=== PATIENT | male | born 1960 | race Caucasian/White ===

== ENCOUNTER 2022-07-12 12:55 | Inpatient (IN) | payer BC ==
[~2022-07-12] VITALS: Ht 185.4 cm; Wt 83.9 kg
--- NOTE | 2022-07-12 13:30 | NUR ---
Patient came in to the er c/o "Pain on Right groin monday now worse". On room air, breathing evenly and unlabored. Kept comfortable, will continue to monitor accordingly.
[2022-07-12 14:05] LABS: BASOPHILS # (AUTO) 0.1 K/uL (0.0-0.2); BASOPHILS % (AUTO) 0.6 % (0.0-2.0); HEMATOCRIT 44 % (39-51); HEMOGLOBIN 14.2 g/dL (13.5-17.5); LYMPHOCYTES # (AUTO) 1.1 K/uL (0.8-4.8); LYMPHOCYTES % (AUTO) 9.4 % (20.0-44.0); MEAN CORPUSCULAR HGB CONC 33 g/dl (31.0-36.0); MEAN CORPUSCULAR VOLUME 88 fL (80-96); MONOCYTES # (AUTO) 0.7 K/uL (0.1-1.30); MONOCYTES % (AUTO) 6.4 % (2.0-12.0); NEUTROPHILS # (AUTO) 9.4 K/uL (1.8-8.9); NEUTROPHILS % (AUTO) 83.6 % (43.0-81.0); PLATELET COUNT (AUTO) 236 K/uL (150-450); RED BLOOD CELL COUNT(AUTO) 4.94 MIL/uL (4.5-6.0); WHITE BLOOD COUNT (AUTO) 11.2 K/uL (4.3-11.0)
[2022-07-12 14:18] LABS: ALBUMIN 3.9 g/dL (3.4-5.0); BILIRUBIN,DIRECT 0.1 mg/dL (0.0-0.2); BILIRUBIN,TOTAL 0.7 mg/dL (0.2-1.0); CALCIUM, SERUM 8.6 mg/dL (8.5-10.1); CREATININE 0.9 mg/dL (0.6-1.3); TOTAL PROTEIN, SERUM 7.4 g/dL (6.4-8.2)
[2022-07-12] MEDS ORDERED: CT SWABBABLE VALVE TRANS SET 1 EA INFUS.SET MC ONE (14:52)
[2022-07-12] MEDS ORDERED: IV NS 0.9% 250 ML IV ONE (14:52)
[2022-07-12] MEDS ORDERED: IOHEXOL-350 100 ML VIAL IV ONE (14:52)
--- NOTE | 2022-07-12 14:55 | NUR ---
DOMINICK [phone] BROTHER.
[2022-07-12] MEDS ORDERED: ONDANSETRON HCL/PF 4 MG/2 ML VIAL ONE (14:58)
[2022-07-12] MEDS ORDERED: MORPHINE SULFATE INJ 4 MG/ML DISP.SYRIN ONE (14:58)
[2022-07-12] MEDS ORDERED: ONDANSETRON HCL/PF 4 MG/2 ML VIAL IVP ONE (15:00)
[2022-07-12] MEDS ORDERED: IV NS 0.9% 1,000 ML BAG IV ONE (15:00)
[2022-07-12] MEDS ORDERED: MORPHINE SULFATE INJ 2 MG/ML DISP.SYRIN IV ONE (15:00)
--- NOTE | 2022-07-12 15:26 | NUR ---
MOVE SHEET SUBMITTED.
[2022-07-12] MEDS ORDERED: PHYTONADIONE INJ 10 MG in IV D5W 50 ML SQ ONE (16:00)
[2022-07-12] MEDS ORDERED: PHYTONADIONE INJ 10 MG in IV D5W 50 ML IV ONE (16:05)
--- NOTE | 2022-07-12 16:52 | NUR ---
CLINICALS FAXED TO [facility] TRANSFER CENTER KISHA
[2022-07-12] MEDS ORDERED: PROTHROMBIN COMPLEX CONCENTR 500 UNIT VIAL IV ONE (17:00)
--- NOTE | 2022-07-12 17:06 | NUR ---
FAXED CLINICALS TO [facility] FOR [facility] MURO
--- NOTE | 2022-07-12 17:24 | NUR ---
CALLED [facility] [phone] AT [facility]
--- NOTE | 2022-07-12 17:31 | NUR ---
CALLED [facility] MIGUE ZAMORA [phone] AND FAXED CLINICALS.
--- NOTE | 2022-07-12 17:34 | NUR ---
[facility] [phone] ATTN LIOR NO LARKSPUR NO TO ENOC SHEPHEDR. ELLABELL AT [facility].
--- NOTE | 2022-07-12 17:50 | NUR ---
CALLED [facility] [phone]
[2022-07-12 17:57] LABS: BASOPHILS % (AUTO) 0.3 % (0.0-2.0); EOSINOPHILS % (AUTO) 0.1 % (0.0-6.0); HEMATOCRIT 38 % (39-51); HEMOGLOBIN 12.4 g/dL (13.5-17.5); LYMPHOCYTES % (AUTO) 9.7 % (20.0-44.0); MEAN CORPUSCULAR HGB CONC 33 g/dl (31.0-36.0); MEAN CORPUSCULAR VOLUME 88 fL (80-96); MONOCYTES # (AUTO) 0.6 K/uL (0.1-1.30); MONOCYTES % (AUTO) 5.2 % (2.0-12.0); NEUTROPHILS # (AUTO) 9.2 K/uL (1.8-8.9); NEUTROPHILS % (AUTO) 84.7 % (43.0-81.0); PLATELET COUNT (AUTO) 204 K/uL (150-450); WHITE BLOOD COUNT (AUTO) 10.9 K/uL (4.3-11.0)
--- NOTE | 2022-07-12 18:19 | NUR ---
ED CALLED. I WAS ADVICED THEY WERE AT [facility].
--- NOTE | 2022-07-12 18:19 | NUR ---
[facility] FAXED CLINICALS [phone] TEL [phone]
--- NOTE | 2022-07-12 18:20 | NUR ---
CALLED [facility] [phone] MIGUE VERA
--- NOTE | 2022-07-12 18:27 | NUR ---
CALLED DR. BISHOP [phone] [facility]
[2022-07-12 18:28] LABS: BILIRUBIN,URINE NEGATIVE (NEGATIVE); COLOR,URINE YELLOW (YELLOW); LEUKOCYTE ESTERASE ,URINE NEGATIVE (NEGATIVE); NITRITE, URINE NEGATIVE (NEGATIVE); PROTEIN,URINE NEGATIVE (NEGATIVE); UGLUCOSE NEGATIVE (NEGATIVE); UROBILINOGEN,URINE 0.2 EU/dL (0.2)
--- NOTE | 2022-07-12 18:38 | NUR ---
[facility] [phone] SUNSHINE.
[2022-07-12 18:49] LABS: BACTERIA,URINE Rare /HPF (None Seen); SQUAMOUS EPITHELIAL CELL,UR Rare /HPF (None Seen)
--- NOTE | 2022-07-12 18:53 | NUR ---
DR. GARSIA SPEAKING WITH DR. SUNSHINE.
--- NOTE | 2022-07-12 18:57 | NUR ---
[facility] [phone] NEEDS AUTH. FOR ADMISSION.
--- NOTE | 2022-07-12 19:16 | NUR ---
DON FROM [place] CALLED CASE BEING DECLINED DUE TO NO AVAIALBLE BEDS.
--- NOTE | 2022-07-12 20:03 | NUR ---
RECEIVED PT IN ROOM 4. PT IS ALERT AND ORIENTED, RESTING COMFORTABLY IN BED. MOTHER IS AT BEDSIDE. PT DENIES ANY PAIN AT THIS TIME. CONNECTED TO MONITOR. RR IS EVEN AND NON LABORED. VSS. WILL CONTINUE TO MONITOR.
--- NOTE | 2022-07-12 21:55 | NUR ---
CANDELARIO CHRISTINA AT [facility], UNABLE TO ACCEPT AT THIS TIME
--- NOTE | 2022-07-12 21:57 | NUR ---
SPOKE WITH SURESH- PREFERRED IPA. AUTH# FOR TRANSFER [id number]
--- NOTE | 2022-07-12 23:00 | NUR ---
INITIATED PLASMA TRANSFUSION VIA IV PUMP LAC18G TYPE: A POS UNIT# [id number]
--- NOTE | 2022-07-12 23:37 | NUR ---
PT TOLERATING PLASMA TRANSFUSION WELL, NO ADVERSE REACTION NOTED, VSS. WILL CONTINUE TO MONITOR.
[2022-07-13] VITALS (8 sets, daily range): BP systolic 98–116; BP diastolic 63–72
--- NOTE | 2022-07-13 00:09 | NUR ---
[facility] CALLED FOR HIGHER LEVEL OF CARE. FACESHEET AND CLINICALS FAXED.
[2022-07-13 00:21] LABS: BASOPHILS # (AUTO) 0.1 K/uL (0.0-0.2); BASOPHILS % (AUTO) 0.5 % (0.0-2.0); EOSINOPHILS % (AUTO) 0.3 % (0.0-6.0); HEMATOCRIT 37 % (39-51); HEMOGLOBIN 12.2 g/dL (13.5-17.5); LYMPHOCYTES # (AUTO) 1.6 K/uL (0.8-4.8); LYMPHOCYTES % (AUTO) 14.8 % (20.0-44.0); MEAN CORPUSCULAR HGB CONC 33 g/dl (31.0-36.0); MEAN CORPUSCULAR VOLUME 88 fL (80-96); MONOCYTES # (AUTO) 1.2 K/uL (0.1-1.30); MONOCYTES % (AUTO) 11.4 % (2.0-12.0); NEUTROPHILS # (AUTO) 7.9 K/uL (1.8-8.9); PLATELET COUNT (AUTO) 204 K/uL (150-450); WHITE BLOOD COUNT (AUTO) 10.9 K/uL (4.3-11.0)
[2022-07-13] MEDS ORDERED: IOHEXOL-350 100 ML VIAL IV ONE (02:30)
[2022-07-13] MEDS ORDERED: IV NS 0.9% 250 ML IV ONE (02:30)
--- NOTE | 2022-07-13 07:30 | NUR ---
CALLED NURSING SUP FOR ICU BED.
--- NOTE | 2022-07-13 07:36 | NUR ---
[facility] CALLED NONDESTRUCTIVE TESTER PAGED.
[2022-07-13] MEDS ORDERED: WARF3TAB59 PO (07:52)
[2022-07-13] MEDS ORDERED: ASPI-1169 PO (07:52)
--- NOTE | 2022-07-13 08:57 | NUR ---
DARIEN FROM [facility] [phone] IF THE PT STILL NEEDS A BED AT [facility].
--- NOTE | 2022-07-13 09:12 | NUR ---
SISTER AUGUSTUS CALLED, LEFT CONTACT # [phone]
[2022-07-13] MEDS ORDERED: MAGNESIUM HYDROXIDE 30 ML UDC PO PRN (10:00)
[2022-07-13] MEDS ORDERED: HYDROCODONE/APAP 5/325MG TABLET PO PRN (10:00)
[2022-07-13] MEDS ORDERED: MAG HYDROX/AL HYDROX/SIMETH 30 ML UDC PO PRN (10:00)
[2022-07-13] MEDS ORDERED: ACETAMINOPHEN 325 MG TABLET PO PRN (10:00)
[2022-07-13] MEDS ORDERED: ONDANSETRON HCL/PF 4 MG/2 ML VIAL IVP PRN (10:00)
[2022-07-13 10:34] LABS: BASOPHILS # (AUTO) 0.1 K/uL (0.0-0.2); BASOPHILS % (AUTO) 0.8 % (0.0-2.0); EOSINOPHILS % (AUTO) 1.3 % (0.0-6.0); HEMATOCRIT 38 % (39-51); HEMOGLOBIN 12.6 g/dL (13.5-17.5); LYMPHOCYTES # (AUTO) 1.2 K/uL (0.8-4.8); LYMPHOCYTES % (AUTO) 16.6 % (20.0-44.0); MEAN CORPUSCULAR HGB CONC 33 g/dl (31.0-36.0); MEAN CORPUSCULAR VOLUME 88 fL (80-96); MONOCYTES # (AUTO) 0.8 K/uL (0.1-1.30); MONOCYTES % (AUTO) 10.6 % (2.0-12.0); NEUTROPHILS # (AUTO) 5.2 K/uL (1.8-8.9); NEUTROPHILS % (AUTO) 70.7 % (43.0-81.0); PLATELET COUNT (AUTO) 199 K/uL (150-450); RED BLOOD CELL COUNT(AUTO) 4.29 MIL/uL (4.5-6.0); WHITE BLOOD COUNT (AUTO) 7.4 K/uL (4.3-11.0)
--- NOTE | 2022-07-13 13:38 | NUR ---
GOING TO ICU 254
--- NOTE | 2022-07-13 14:06 | NUR ---
REPORT GIVEN TO OLIVIA MAKI AT ICU. PT AWAITING TRANSFER TO FLOOR.
[2022-07-13] MEDS: IV NS 0.9% 1,000 ML IV PRN (14:32)
--- NOTE | 2022-07-13 14:37 | NUR ---
PT TRANSFERRED TO 254 VIA [facility] ACLS PROTOCOL. WARM HANDOFF GIVEN TO GLYNN BAKER.
--- NOTE | 2022-07-13 14:45 | NUR ---
ICU/RN PT RECEIVED IN BED, AWAKE, A&OX4. REPORT RECEIVED FROM TRAMAINE FLYNN. LEFT AC 18G AND RIGHT AC 18G IN PLACE, IVF NS STARTED AT 75CC/HR ORDERED. PT DOES NOT REPORT PAIN OR DISCOMFORT AT THIS TIME. PT STABLE ON RA SAT 98% ON BEDSIDE MONITOR.
--- NOTE | 2022-07-13 19:30 | NUR ---
RN OPENING NOTES RECEIVED CARE OF PATIENT FROM AM NURSE, PATIENT SLEEPING, WAKES UP TO NAME. PATIENT IS A/O X4, ABLE TO MAKE NEEDS KNOWN. PATIENT IN NO DISCOMFORT OR PAIN AT THIS TIME. PATIENT BREATHING ON ROOM AIR, NO SOB NOTED, O2 SAT 94%. PATIENT'S TELE MONITOR READS NSR WITH BBB, HR 81, NO DISTRESS NOTED ON PATIENT. LEFT AC 18G AND RIGHT AC 18G IN PLACE, RUNNING WITH IVF NS AT 75 ML/HR. SAFETY MEASURES IMPLEMENTED. WILL CONTINUE TO MONITOR PATIENT.
[2022-07-14] VITALS (22 sets, daily range): BP systolic 88–116; BP diastolic 61–80
[2022-07-14] MEDS: IV NS 0.9% 1,000 ML IV PRN (04:00)
[2022-07-14 05:01] LABS: BASOPHILS % (AUTO) 0.6 % (0.0-2.0); EOSINOPHILS % (AUTO) 2.4 % (0.0-6.0); HEMATOCRIT 35 % (39-51); HEMOGLOBIN 11.6 g/dL (13.5-17.5); LYMPHOCYTES # (AUTO) 1.4 K/uL (0.8-4.8); LYMPHOCYTES % (AUTO) 23.7 % (20.0-44.0); MEAN CORPUSCULAR HGB CONC 33 g/dl (31.0-36.0); MEAN CORPUSCULAR VOLUME 89 fL (80-96); MONOCYTES # (AUTO) 0.7 K/uL (0.1-1.30); MONOCYTES % (AUTO) 12.5 % (2.0-12.0); NEUTROPHILS # (AUTO) 3.5 K/uL (1.8-8.9); NEUTROPHILS % (AUTO) 60.8 % (43.0-81.0); PLATELET COUNT (AUTO) 176 K/uL (150-450); RED BLOOD CELL COUNT(AUTO) 3.93 MIL/uL (4.5-6.0); WHITE BLOOD COUNT (AUTO) 5.8 K/uL (4.3-11.0)
[2022-07-14 05:50] LABS: CALCIUM, SERUM 7.7 mg/dL (8.5-10.1); CREATININE 0.8 mg/dL (0.6-1.3); PHOSPHORUS 2.5 mg/dL (2.5-4.9); POTASSIUM 3.7 mmol/L (3.5-5.1)
--- NOTE | 2022-07-14 07:20 | NUR ---
RN NOTES ENDORSED CARE OF PATIENT TO AM NURSE, PATIENT REMAINS A/O X4, NO PAIN OF DISCOMFORT EXPRESSED. ON ROOM AIR, TOLERATING WELL, NO SOB NOTED. NO SIGNIFICANT FINDINGS UPON ALL NURSING ASSESSMENTS. PLAN OF CARE EXECUTED. SAFETY MEASURES KEPT IN PLACE. ENDORSED CARE OF PATIENT TO AM NURSE FOR ANTHONY.
[2022-07-14] MEDS ORDERED: ENOXAPARIN SODIUM 80 MG/0.8 ML DISP.SYRIN SQ SCH (09:00)
--- NOTE | 2022-07-14 19:10 | NUR ---
RN NOTES RECEIVED REPORT FROM MORNING RN. PATIENT IN BED A/O X4. ON ROOM AIR SATING 99% NO SOB NO DISTRESS NOTED AT THIS TIME. WITH IV ACCESS AT L AC # 18 PATENT FLUSHES WELL. WITH R AC # 18 PATENT SALINE LOCK. ALL SAFETY MEASURES IN PLACE AT ALL TIMES. HOB ELEVATED. CALL LIGHT WITHIN REACH. BED ON LOWEST POSITION AND LOCKED. NO S/SX OF BLEEDING AT THIS TIME. WILL CLOSELY MONITOR THE PATIENT
--- NOTE | 2022-07-14 20:05 | NUR ---
RN NOTES RECEIVED CALL FROM DR VASQUEZ TO DIONY PHILLIPS.
[2022-07-15] VITALS (18 sets, daily range): BP systolic 100–143; BP diastolic 65–88
[2022-07-15 04:16] LABS: BASOPHILS % (AUTO) 0.6 % (0.0-2.0); EOSINOPHILS % (AUTO) 2.5 % (0.0-6.0); HEMATOCRIT 34 % (39-51); HEMOGLOBIN 11.3 g/dL (13.5-17.5); LYMPHOCYTES # (AUTO) 1.4 K/uL (0.8-4.8); LYMPHOCYTES % (AUTO) 25.2 % (20.0-44.0); MEAN CORPUSCULAR HGB CONC 33 g/dl (31.0-36.0); MEAN CORPUSCULAR VOLUME 88 fL (80-96); MONOCYTES # (AUTO) 0.7 K/uL (0.1-1.30); MONOCYTES % (AUTO) 12.3 % (2.0-12.0); NEUTROPHILS # (AUTO) 3.2 K/uL (1.8-8.9); NEUTROPHILS % (AUTO) 59.4 % (43.0-81.0); PLATELET COUNT (AUTO) 183 K/uL (150-450); RED BLOOD CELL COUNT(AUTO) 3.86 MIL/uL (4.5-6.0); WHITE BLOOD COUNT (AUTO) 5.4 K/uL (4.3-11.0)
[2022-07-15 04:55] LABS: BILIRUBIN,TOTAL 0.7 mg/dL (0.2-1.0); CALCIUM, SERUM 8.1 mg/dL (8.5-10.1); CREATININE 0.8 mg/dL (0.6-1.3); PHOSPHORUS 2.9 mg/dL (2.5-4.9); POTASSIUM 3.7 mmol/L (3.5-5.1)
--- NOTE | 2022-07-15 07:05 | NUR ---
RN NOTES PATIENT REMAINS STABLE NO SIGNIFICANT CHANGES IN HEALTH CONDITION. PATIENT ON ROOM AIR SATING 99% NO SOB NO DISTRESS NO PAIN NOTED AT THIS TIME. ALL SAFETY MEASURES IN PLACE AT ALL TIMES. HOB ELEVATED. CALL LIGHT WITHIN REACH. WILL ENDORSED TO MORNING SHIFT FOR ANTHONY
--- NOTE | 2022-07-15 07:15 | NUR ---
WAREHOUSE DELIVERY MANAGER OPENING NOTE: RECEIVED PT. IN BED, AWAKE, A/OX4, ABLE TO MAKE NEEDS KNOWN. NO COMPLAINTS OF PAIN/DISCOMFORT AT THIS TIME. INTERIOR PLANT CARETAKER READS NSR WITH HR OF 64 BPM. ON RA, NO S/S OF RESPIRATORY DISTRESS. PT. IS CONTINENT AND USING URINAL IN BED, U/O CLEAR YELLOW. PT. CAN MOVE INDEPENDENTLY IN BED. SKIN INTACT. IV ACCESS ON L AC #18G AND R AC #18G, BOTH SALINE LOCKED. DRESSING C/D/I. IV SITES HAVE NO S/S OF INFILTRATION. SAFETY MEASURES IN PLACE: BED IN LOWEST & LOCKED POSITION, BED ALARM ON, CALL LIGHT WITHIN REACH, HOB ELEVATED AT 30 DEGREES, SIDE RAILS UP X2. WILL CONTINUE TO MONITOR PT. FOR ANY CHANGES.
[2022-07-15] MEDS: HEPARIN INFUSION/D5W 500 ML IV PRN (09:48)
[2022-07-15] MEDS: ASPIRIN 81 MG TAB.CHEW PO SCH (10:12)
--- NOTE | 2022-07-15 15:10 | NUR ---
ms rn received a new transfer from icu,61 year ol male, awake,alert,oriented x4,not in any form of distress, respirations even and unlabored,no sob noted, lungs are clear,abdomen soft,positive bowel sounds, denies pain at this time,nsr on monitor. patient in heparin drip infusing at right ac g,18,will have a repaet aptt draw at 1600, will monitor patient. Addendum: 07/15/22 at 1540 by TIARRA CORDOVA RN notes should be timed 1525,not 1510
--- NOTE | 2022-07-15 15:20 | NUR ---
MEDICAL INSURANCE VERIFIERFAMILY READINESS SUPPORT ASSISTANT NOTE: TRANSFERRED PT. TO TELEMETRY UNIT IN ROOM 312-1 VIA RNEY AT 1515. REPORT GIVEN TO PRODUCTION DIRECTORASIF. PT. REMAINS TO BE AWAKE, A/OX4, ABLE TO MAKE NEEDS KNOWN. NO COMPLAINTS OF PAIN/DISCOMFORT AT THE TIME OF TRANSFER. BUSINESS EMPLOYMENT SPECIALIST READS NSR WITH HR OF 71 BPM. ON RA, NO S/S OF RESPIRATORY DISTRESS. PT. IS CONTINENT & CAN MOVE INDEPENDENTLY IN BED. SKIN INTACT. IV ACCESS ON L AC #18G SALINE LOCKED AND R AC #18G, WITH HEPARIN DRIP RUNNING AT 1550 UNITS/HR. DRESSING C/D/I. BOTH IV SITES HAVE NO S/S OF INFILTRATION. NO S/S OF BLEEDING NOTED. CONTINUITY OF CARE, PT. BELONGINGS AND MEDICATIONS HANDED OFF AND ENDORSED TO GLYNN GOLD AND GLYNN MAYEN AT BEDSIDE.
[2022-07-15] MEDS ORDERED: WARFARIN SODIUM 2 MG TABLET PO SCH (17:00)
[2022-07-15] MEDS ORDERED: HEPARIN SODIUM, PORCINE 5000 UNITS/1 ML VIAL IV ONE (17:30)
--- NOTE | 2022-07-15 18:47 | NUR ---
COMMUNITY RELATIONS DIRECTOR CLOSING NOTE: PT IS AWAKE, A/OX4, ABLE TO MAKE NEEDS KNOWN. NO COMPLAINTS OF PAIN/DISCOMFORT AT THE TIME . METAL PRECISION MACHINE ASSEMBLER READS NSR WITH HR OF 76 BPM. ON RA, NO S/S OF RESPIRATORY DISTRESS NOTED. PT IS CONTINENT; ABLE MOVE INDEPENDENTLY IN BED. SKIN INTACT. IV ACCESS ON L AC #18G SALINE LOCKED AND R AC #18G, WITH HEPARIN DRIP RUNNING AT 1700 UNITS/HR. NO S/S OF INFILTRATION TO IV SITES. NO S/S OF BLEEDING SEEN.
--- NOTE | 2022-07-15 19:10 | NUR ---
TELE/RN OPENING NOTE RECEIVED PATIENT RESTING IN BED. FAMILY AT BEDSIDE. PATIENT IS ALERT AND ORIENTED X 4. ABLE TO MAKE NEEDS KNOWN. DENIES PAIN AT THIS TIME. CONTINUES ON ROOM AIR WITH NO S/SX OF RESPIRATORY DISTRESS NOTED. IV ACCESS TO RIGHT AC #18G AND LEFT AC #18G BOTH INTACT AND PATENT. CONTINUES ON HEPARIN DRIP AT 1700 UNITS/HR. NEXT PTT IS AT 2200. NO S/SX OF ACTIVE BLEEDING NOTED. CONTINUES ON TELE MONITOR WITH CURRENT READING SR WITH BBB. CALL LIGHT WITHIN REACH. ASPIRATION, FALL AND SAFETY PRECAUTIONS MAINTAINED. ALL NEEDS ATTENDED TO AT THIS TIME.
--- NOTE | 2022-07-15 22:00 | NUR ---
TELE/RN NOTE RECEIVED CALL FROM LAB WITH CRITICAL LAB VALUE PTT > 170. PER HEPARIN PROTOCOL NOTIFIED UNIT MANAGER CONVENIENCE STORES MD VELASQUEZ. ORDER TO HOLD HEPARIN DRIP X 1 HOUR AND THEN DECREASE RATE BY 3 UNITS/KG/HR. NEW RATE WILL BE 1450 UNITS/HR TO BE RESTARTED AT 2300.
[2022-07-16] VITALS: BP 124/78
[2022-07-16] MEDS: HEPARIN INFUSION/D5W 500 ML IV PRN ×2 (03:00→22:11)
[2022-07-16 04:00] VITALS: BP 97/68
--- NOTE | 2022-07-16 06:10 | NUR ---
TELE/RN NOTE PATIENT CURRENTLY RESTING IN BED. AWAKE, ALERT AND ORIENTED X 4. ABLE TO MAKE NEEDS KNOWN. DENIES PAIN AT THIS TIME. CONTINUES ON ROOM AIR WITH NO S/SX OF RESPIRATORY DISTRESS NOTED. IV ACCESS TO RIGHT AC #18G AND LEFT AC #18G BOTH INTACT AND PATENT. CONTINUES ON HEPARIN DRIP AT 1450 UNITS/HR. AWAITING PTT RESULT FROM LAB. NO S/SX OF ACTIVE BLEEDING NOTED. CONTINUES ON TELE MONITOR WITH CURRENT READING SR WITH BBB. CALL LIGHT WITHIN REACH. ASPIRATION, FALL AND SAFETY PRECAUTIONS MAINTAINED. WILL ENDORSE PLAN OF CARE TO ONCOMING SHIFT RN.
[2022-07-16 06:47] LABS: BASOPHILS % (AUTO) 0.5 % (0.0-2.0); EOSINOPHILS % (AUTO) 2.9 % (0.0-6.0); HEMATOCRIT 35 % (39-51); HEMOGLOBIN 11.6 g/dL (13.5-17.5); LYMPHOCYTES # (AUTO) 1.2 K/uL (0.8-4.8); LYMPHOCYTES % (AUTO) 20.1 % (20.0-44.0); MEAN CORPUSCULAR HGB CONC 34 g/dl (31.0-36.0); MEAN CORPUSCULAR VOLUME 89 fL (80-96); MONOCYTES # (AUTO) 0.6 K/uL (0.1-1.30); MONOCYTES % (AUTO) 10.8 % (2.0-12.0); NEUTROPHILS # (AUTO) 3.9 K/uL (1.8-8.9); NEUTROPHILS % (AUTO) 65.7 % (43.0-81.0); PLATELET COUNT (AUTO) 200 K/uL (150-450); RED BLOOD CELL COUNT(AUTO) 3.93 MIL/uL (4.5-6.0); WHITE BLOOD COUNT (AUTO) 5.9 K/uL (4.3-11.0)
--- NOTE | 2022-07-16 08:00 | NUR ---
RN OPENING NOTE PATIENT RECEIVED IN BED, AO X 4, ABLE TO RESPONDS ALL STIMULI. IN NO ACUTE DISTRESS NOTED. RESPIRATORY EVEN AND UNLABORED ON ROOM AIR. CONTINUES ON HEPARIN DRIP AT 1300 UNITS, CONFIRMED WITH PHARMACY, AND NEXT PTT WILL BE AT 1300. NO ACTIVE BLEEDING OBSERVED. SKIN IS WARM TO TOUCH, KEEP CLEAN/DRY. KEPT ELEVATED HOB FOR ENSURE AIRWAY AND ASPIRATION PRECAUTION, ALSO LOWEST POSITION OF THE BED, S/R UP X 2, BED ALARM IS ON AT ALL THE TIMES. ALL SAFETY PRECAUTION APPLIED. CALL LIGHT WITHIN REACH, WILL CONTINUE TO MONITOR.
--- NOTE | 2022-07-16 08:00 | NUR ---
RN OPENING NOTE PATIENT RECEIVED IN BED, AO X 4, ABLE TO RESPONDS ALL STIMULI. IN NO ACUTE DISTRESS NOTED. RESPIRATORY EVEN AND UNLABORED ON ROOM AIR. CONTINUES ON HEPARIN DRIP AT 1300 UNITS, CONFORMED WITH PHARMACY, AND NEXT PTT WILL BE AT 1300. NO ACTIVE BLEEDING OBSERVED. SKIN IS WARM TO TOUCH, KEEP CLEAN/DRY. KEPT ELEVATED HOB FOR ENSURE AIRWAY AND ASPIRATION PRECAUTION, ALSO LOWEST POSITION OF THE BED, S/R UP X 2, BED ALARM IS ON AT ALL THE TIMES. ALL SAFETY PRECAUTION APPLIED. CALL LIGHT WITHIN REACH, WILL CONTINUE TO MONITOR. Addendum: 07/16/22 at 0925 by YENIFER TOTH RN ERROR
[2022-07-16] MEDS: ASPIRIN 81 MG TAB.CHEW PO SCH (08:35)
--- NOTE | 2022-07-16 13:45 | NUR ---
PATIENT PTT LEVEL 51.7 AT 1300, CLARIFIED HEPARIN DRIP DOSE RATE WITH PHARMACY, NO CHANGE DOSE AT THIS TIME, CONTINUE TO MONITOR CLOSELY.
[2022-07-16] MEDS: WARFARIN SODIUM 5 MG TABLET PO SCH (17:46)
--- NOTE | 2022-07-16 18:46 | NUR ---
RN CLOSING NOTE PATIENT IN BED AND RESTING. IN NO ACUTE DISTRESS NOTED. RESPIRATORY EVEN AND UNLABORED ON ROOM AIR. SKIN IS WARM TO TOUCH, KEEP CLEAN/DRY, INTACT IV LINE. PATIENT CONTINUES ON HEPARIN DRIP AND BRIDGING START WITH WARFARIN 5MG. INR 1.12 AT 1300, NO CHANGES HEPARIN DRIP, AND CONTINUE TO MONITOR HGB, PT/INR, AND PTT CLOSELY. NO ACTIVE BLEEDING OBSERVED. KEPT ELEVATED HOB FOR ENSURE AIRWAY AND ASPIRATION PRECAUTION. BED IN LOWEST POSITION AND LOCKED. BED ALARM IS ON AT ALL THE TIMES. ALL SAFETY MEASURED IN PLACED. CALL LIGHT WITHIN REACH, WILL ENDORSED TO NEXT SHIFT.
--- NOTE | 2022-07-16 19:30 | NUR ---
FRONT DESK PERSON OPENING NOTE RECEIVED PT AWAKE IN BED. A/O X4 AND ABLE TO MAKE NEEDS KNOWN. AT BEDSIDE. PT STABLE ON ROOM AIR. NO SOB OR S/S OF RESPIRATORY DISTRESS. BREATHING EVEN AND UNLABORED. ON EXTERNAL PLAN REP READING 76 BPM. IV ACESS RAC 18 GAUGE RUNNING HEPARIN @ 1300 U/HR AND LAC 18 GAUGE SL, INTACT AND PATENT. NO S/S OF BLEEDING. SAFETY PRECAUTIONS IN PLACE. BED IN LOWEST LOCKED POSITION, HOB ELEVATED, SIDE RAILS UP X2, AND CALL LIGHT AND TABLE WITHIN REACH. ALL NEEDS MET AT THIS TIME.
[2022-07-16 20:00] VITALS: BP 114/72
[2022-07-17] VITALS: BP 104/61
[2022-07-17 04:00] VITALS: BP 98/62
--- NOTE | 2022-07-17 07:01 | NUR ---
CLIP LOADING MACHINE FEEDER CLOSING NOTE PT AWAKE IN BED. A/O X4 AND ABLE TO MAKE NEEDS KNOWN. AT BEDSIDE. PT STABLE ON ROOM AIR. NO SOB OR S/S OF RESPIRATORY DISTRESS. BREATHING EVEN AND UNLABORED. ON EXTERNAL UMBRELLA TIPPER HAND READING SR WITH BBB 62 BPM. IV ACCESS RAC 18 GAUGE RUNNING HEPARIN @ 1300 U/HR AND LAC 18 GAUGE SL, INTACT AND PATENT. NO S/S OF BLEEDING. ALL DUE MEDS GIVEN ORDERED. SAFETY PRECAUTIONS IN PLACE AT ALL TIMES. BED IN LOWEST LOCKED POSITION, HOB ELEVATED, SIDE RAILS UP X2, AND CALL LIGHT AND TABLE WITHIN REACH. ALL NEEDS MET AT THIS TIME AND WILL ENDORSE TO ONCOMING NURSE FOR ANTHONY.
--- NOTE | 2022-07-17 07:30 | NUR ---
SEXUAL ABUSE COUNSELLOR OPENING NOTE RECEIVED PATIENT AWAKE IN BED. PATIENT IS A/O X4 AND ABLE TO MAKE NEEDS KNOWN. PATIENT IS STABLE ON ROOM AIR. NO SOB OR S/S OF RESPIRATORY DISTRESS NOTED. BREATHING EVEN AND UNLABORED.PATIENT ABLE TO AMBULATE. ON EXTERNAL BILLING SPEC READING SR WITH BBB 62. IV ACCESS RAC 18 GAUGE RUNNING HEPARIN @ 1300 U/HR AND LAC 18 GAUGE SL, INTACT AND PATENT. NO S/S OF BLEEDING NOTED. ALL SAFETY PRECAUTIONS IN PLACE. BED IN LOWEST LOCKED POSITION, HOB ELEVATED, SIDE RAILS UP X2, AND CALL LIGHT AND TABLE WITHIN REACH. WILL CONTINUE TO MONITOR.
[2022-07-17 08:00] VITALS: BP 99/57
[2022-07-17 09:00] VITALS: BP 99/57
[2022-07-17] MEDS: ASPIRIN 81 MG TAB.CHEW PO SCH (09:50)
[2022-07-17] MEDS: HEPARIN INFUSION/D5W 500 ML IV PRN (14:06)
[2022-07-17 16:00] VITALS: BP 112/67
[2022-07-17] MEDS: WARFARIN SODIUM 5 MG TABLET PO SCH (16:48)
--- NOTE | 2022-07-17 18:53 | NUR ---
DISHWASHING MACHINE REPAIRER CLOSING NOTE PATIENT AWAKE IN BED. PATIENT IS A/O X4 AND ABLE TO MAKE NEEDS KNOWN. PATIENT IS STABLE ON ROOM AIR. NO SOB OR S/S OF RESPIRATORY DISTRESS NOTED. BREATHING EVEN AND UNLABORED.PATIENT ABLE TO AMBULATE. ON EXTERNAL FORM SETTER METAL ROAD FORMS READING SR 85. IV ACCESS LAC 18 GAUGE RUNNING HEPARIN @ 1300 U/HR AND RAC 18 GAUGE SL, INTACT AND PATENT. NO S/S OF BLEEDING NOTED. ALL DUE MEDS GIVEN ORDERED.ALL SAFETY PRECAUTIONS IN PLACE. BED IN LOWEST LOCKED POSITION, HOB ELEVATED, SIDE RAILS UP X2, AND CALL LIGHT AND TABLE WITHIN REACH. WILL ENDORSE FOR ANTHONY.
--- NOTE | 2022-07-17 19:30 | NUR ---
ALARM INSTALLATION TECHNICIAN OPENING NOTE RECEIVED PT AWAKE IN BED. A/O X4 AND ABLE TO MAKE NEEDS KNOWN. AT BEDSIDE. PT STABLE ON ROOM AIR. NO SOB OR S/S OF RESPIRATORY DISTRESS. BREATHING EVEN AND UNLABORED. ON EXTERNAL FOREPART ROUNDER READING 80 BPM. IV ACCESS RAC 18 GAUGE RUNNING HEPARIN @ 1300 U/HR AND LAC 18 GAUGE SL, INTACT AND PATENT. NO S/S OF BLEEDING. SAFETY PRECAUTIONS IN PLACE. BED IN LOWEST LOCKED POSITION, HOB ELEVATED, SIDE RAILS UP X2, AND CALL LIGHT AND TABLE WITHIN REACH. ALL NEEDS MET AT THIS TIME.
[2022-07-17 20:00] VITALS: BP 121/66
[2022-07-18] VITALS: BP 102/55
[2022-07-18 04:00] VITALS: BP 90/54
--- NOTE | 2022-07-18 06:45 | NUR ---
PIEROGI MAKER CLOSING NOTE PT AWAKE IN BED. A/O X4 AND ABLE TO MAKE NEEDS KNOWN. PT STABLE ON ROOM AIR. NO SOB OR S/S OF RESPIRATORY DISTRESS. BREATHING EVEN AND UNLABORED. ON EXTERNAL COLLECTION SYSTEMS TECHNICIAN READING 80 BPM. IV ACCESS RAC 18 GAUGE RUNNING HEPARIN @ 1300 U/HR AND LAC 18 GAUGE SL, INTACT AND PATENT. NO S/S OF BLEEDING. SAFETY PRECAUTIONS IN PLACE AT ALL TIMES. BED IN LOWEST LOCKED POSITION, HOB ELEVATED, SIDE RAILS UP X2, AND CALL LIGHT AND TABLE WITHIN REACH. ALL NEEDS MET AT THIS TIME AND WILL ENDORSE TO ONCOMING NURSE FOR ANTHONY.
--- NOTE | 2022-07-18 07:15 | NUR ---
REMOTE SENSING ANALYST OPENING NOTES PATIENT RECEIVED AWAKE IN BED IN NO ACUTE SIGNS OF DISTRESS. HOB ELEVATED. A/O X 4. ABLE TO VERBALIZED NEEDS, DENIES PAIN OR ANY DISCOMFORTS AT THIS TIME. ON ROOM AIR, BREATHING EVEN AND UNLABORED. ON TELEMETRY MONITORING WITH CURRENT READING OF SR, HR-64 BPM, NO C/O CARDIAC DISTRESS VOICED AT THIS TIME. PT ON HEPARIN DRIP RUNNING AT 1,300 U/HR ( 26 ML/HR) TO RAC G#18 IV ACCESS. PT ALSO HAS IV ACCESS ON LAC #18g INTACT, PATENT AND SALINE LOCKED. SAFETY PRECAUTIONS MAINTAINED: CALL LIGHT AND TRAY TABLE WITHIN REACH OF PT, SIDE RAILS UP X2, BED IN LOWEST LOCKED POSITION. WILL CONTINUE WITH PLAN OF CARE.
[2022-07-18 08:00] VITALS: BP 100/54
[2022-07-18] MEDS: ASPIRIN 81 MG TAB.CHEW PO SCH (08:20)
[2022-07-18] MEDS: HEPARIN INFUSION/D5W 500 ML IV PRN (09:09)
--- NOTE | 2022-07-18 09:19 | NUR ---
RN NOTES PTT RESULTS CAME OUT AT 0900 AND WAS 60.4. PER HEPARIN DRIP PROTOCOL, NO CHANGE IN DRIP, STILL 1,300 U/H (26ML/HR) AND NEXT PTT BLOOD DRAW IS TOMORROW MORNING, 07/19/22.
[2022-07-18 12:00] VITALS: BP 102/59
[2022-07-18 16:00] VITALS: BP 110/65
[2022-07-18] MEDS: WARFARIN SODIUM 5 MG TABLET PO SCH (16:42)
--- NOTE | 2022-07-18 18:52 | NUR ---
CONVERSION DEVELOPER CLOSING NOTES PATIENT RESTING IN BED WATCHING TV AT THIS TIME. A/O X 4. ABLE TO VERBALIZED NEEDS. AMBULATORY WITH STEADY GAIT. ON ROOM AIR, BREATHING EVEN AND UNLABORED. ON TELEMETRY MONITORING WITH CURRENT READING OF SR, HR-7 BPM, NO C/O CARDIAC DISTRESS VOICED DURING SHIFT. PT ON HEPARIN DRIP RUNNING AT 1,300 U/HR ( 26ML/HR) TO RAC G#18 IV ACCESS. PT ALSO HAS IV ACCESS ON LAC #18g INTACT, PATENT AND SALINE LOCKED. ALL NEEDS AND CARE ATTENDED WELL. SAFETY PRECAUTIONS MAINTAINED: CALL LIGHT AND TRAY TABLE WITHIN REACH OF PT, SIDE RAILS UP X2, BED IN LOWEST LOCKED POSITION. WILL ENDORSE ANTHONY TO RECIPROCATING DRILL OPERATOR NURSE.
--- NOTE | 2022-07-18 19:30 | NUR ---
WIRING INSPECTOR NOTES SR-79 ON TELE MONITOR,RECEIVED ON BED A/O X4,MOTHER AT BEDSIDE,ON HEPARIN DRIP AT 26ML/HR RATE,INFUSING RIGHT NOW ON NEW SALINE LOCK ON LEFT FORE 320 VIA IV PUMP.NO S/S OF BLEEDING NOTED.AMBULATE TO THE BATHROOM WITH STEADY GAIT,DENIES DISCOMFORTS AT THE MOMENT,CALL LIGHT IN REACH,NEEDS ANTICIPATED.
[2022-07-18 20:00] VITALS: BP 115/65
[2022-07-19] VITALS: BP 106/60
[2022-07-19 04:00] VITALS: BP 101/59
[2022-07-19] MEDS: HEPARIN INFUSION/D5W 500 ML IV PRN ×2 (04:02→20:45)
[2022-07-19 05:06] VITALS: BP 101/59
--- NOTE | 2022-07-19 07:25 | NUR ---
SPORTS STATISTICIAN OPENING NOTES PATIENT RECEIVED AWAKE IN BED. NO S/S OF RESPIRATORY DISTRESS. HOB ELEVATED. A/O X 4. ABLE TO VERBALIZED NEEDS. DENIES PAIN OR ANY DISCOMFORT AT THIS TIME. ON ROOM AIR, BREATHING EVEN AND UNLABORED. ON TELEMETRY MONITORING WITH CURRENT READING OF SR, HR-61 BPM. PT ON HEPARIN DRIP RUNNING AT 1,300 U/HR ( 26 ML/HR) TO RAC G#18 IV ACCESS. PT ALSO HAS IV ACCESS ON LAC #18G INTACT, PATENT AND SALINE LOCKED. WILL CONTINUE TO MONITOR PT.
[2022-07-19 08:00] VITALS: BP 102/56
[2022-07-19] MEDS: ASPIRIN 81 MG TAB.CHEW PO SCH (09:13)
--- NOTE | 2022-07-19 09:20 | NUR ---
ELEMENTARY TEACHER NOTES RECEIVED LATEST PTT RESULT - 39.3 SECS, HEPARIN BOLUS OF 3400 UNITS GIVEN PER PROTOCOL, INCREASED CURRENT HEPARIN DRIP RATE BY 150 U/HR, CURRENT RATE AT 1450 U/HR. NEXT PTT CHECK AT 1520, NOTED AND CARRIED OUT.
[2022-07-19] MEDS ORDERED: HEPARIN SODIUM, PORCINE 5000 UNITS/1 ML VIAL IV ONE (09:30)
[2022-07-19 16:00] VITALS: BP 104/58
--- NOTE | 2022-07-19 16:30 | NUR ---
PROOFER BLACK AND WHITE NOTES PTT RESULT IS 64.5, NO CHANGE IN HEPARIN DRIP OF 1450 U/HR PER PROTOCOL, NEXT PTT ORDERED TOMORROW AM.
--- NOTE | 2022-07-19 16:43 | NUR ---
OIL WELL ENGINEER DISCHARGE NOTE PT A/O X 4. ABLE TO MAKE NEEDS KNOWN. NO C/O PAIN AT THIS TIME. NO S/S OF RESPIRATORY DISTRESS NOTED. PT LEFT WITH LIFE VEST ON. PT'S EDUCATION GIVEN BY LIFE VEST LOCKER ROOM SUPERVISOR TERENCE. DISCHARGE DISCUSSED WITH PT. PT VERBALIZED UNDERSTANDING. BELONGING LIST CHECKED. PT LEFT VIA PRIVATE CAR WITH ALL HIS BELONGINGS. Addendum: 07/19/22 at 1715 by CAMILA ROSSI RN PLEASE DISREGARD ABOVE NOTE. USER ERROR.
[2022-07-19] MEDS: WARFARIN SODIUM 5 MG TABLET PO SCH (17:32)
--- NOTE | 2022-07-19 19:07 | NUR ---
COVERSTITCH BINDER CLOSING NOTES PATIENT SITTING IN BED, WATCHING TV AT THIS TIME. A/O X 4. ABLE TO MAKE NEEDS KNOWN. AMBULATORY WITH STEADY GAIT. ON ROOM AIR, BREATHING EVEN AND UNLABORED. ON TELEMETRY MONITORING WITH CURRENT READING OF SR, HR-64, NO CARDIAC DISTRESS SEEN. PT ON HEPARIN DRIP RUNNING AT 1,450 U/HR TO RAC G#18 IV ACCESS, WITH NO S/S OF BLEEDING. PT ALSO HAS IV ACCESS TO LAC #18G INTACT, PATENT AND SALINE LOCKED. ALL CARE, AND MEDS GIVEN ON TIMELY MANNER. CALL LIGHT WITHIN REACH, SIDE RAILS UP X2, BED IN LOW POSITION. WILL ENDORSE PT'S CARE TO ONCOMING NURSE.
--- NOTE | 2022-07-19 19:30 | NUR ---
ASSOCIATE STORE LEADER OPENING NOTES RECEIVED PATIENT IN BED; AWAKE, ALERT AND ORIENTED X 4.ON ROOM AIR; TOLERATING WELL. BREATHING EVEN AND NONLABORED. NOT IN ANY FORM OF RESPIRATORY DISTRESS. ON TELEMETRY MONITORING WITH CURRENT READING OF SINUS RHYTHM HR - 71 BPM. DENIES ANY PAIN OR DISCOMFORT AT THIS TIME. WITH ONGOING HEPARIN DRIP @ LEFT FOREARM 18g; PATENT AND INTACT REGULATED @ 1450 UNITS/HR = 29 ML/HR; FLUSHES WELL, NO BLEEDING OR INFILTRATION NOTED. ABLE TO MAKE NEEDS KNOWN. FALL AND SAFETY MEASURES IMPLEMENTED: CALL LIGHT AND TABLE WITHIN REACH, SIDE RAILS UP X2, BED IN LOWEST LOCKED POSITION. WILL CONTINUE PLAN OF CARE
[2022-07-19 20:00] VITALS: BP 112/58
[2022-07-20] VITALS: BP 110/57
[2022-07-20 00:15] VITALS: BP 110/57
[2022-07-20 04:00] VITALS: BP 109/60
--- NOTE | 2022-07-20 07:15 | NUR ---
WILDLIFE TECHNICIAN CLOSING NOTES PATIENT IN BED; AWAKE, A/A X 4. STABLE ON ROOM AIR. BREATHING EVEN AND NONLABORED. IN NO ACUTE DISTRESS. ON TELE MONITORING WITH CURRENT READING OF SINUS BRADYCARDIA HR - 57 BPM WITH BBB. NO C/O PAIN OR DISCOMFORT AT THIS TIME. WITH ONGOING HEPARIN DRIP @ LEFT FOREARM 20g; PATENT AND INTACT REGULATED @ 1450 UNITS/HR = 29 ML/HR; FLUSHES WELL, NO BLEEDING AND INFILTRATION NOTED. ABLE TO MAKE NEEDS KNOWN. FALL AND SAFETY MEASURES IN PLACE: CALL LIGHT AND TABLE WITHIN REACH, SIDE RAILS UP X2, BED IN LOWEST LOCKED POSITION. ENDORSED TO MARY MAKI FOR ANTHONY.
--- NOTE | 2022-07-20 07:35 | NUR ---
SLIP OPERATOR OPENING NOTES RECEIVED PATIENT AWAKE IN BED. NO S/S OF RESPIRATORY DISTRESS. HOB ELEVATED. A/O X 4. ABLE TO VERBALIZED NEEDS. DENIES PAIN OR ANY DISCOMFORT AT THIS TIME. ON ROOM AIR, BREATHING EVEN AND UNLABORED. ON TELEMETRY MONITORING WITH CURRENT READING OF SR, HR-62 BPM. HEPARIN DRIP DECREASED TO 1,300 U/HR ( 26 ML/HR) TO RAC G#18 IV ACCESS, DUE TO PTT: 82.4. PT ALSO HAS IV ACCESS ON LAC #18G INTACT, PATENT AND SALINE LOCKED. WILL CONTINUE TO MONITOR PT.
[2022-07-20] MEDS: ASPIRIN 81 MG TAB.CHEW PO SCH (08:51)
--- NOTE | 2022-07-20 15:45 | NUR ---
PHYSICAL THERAPY AIDES TEACHER NOTES LATEST PTT IS 36.3 SECS., BOLUS OF HEPARIN 3400 UNITS GIVEN PER HEPARIN PROTOCOL AND INCREASED HEPARIN RATE BY 150U/HR, CURRENT RATE IS 1450 U/HR, NO S/S OF BLEEDING NOTED.
[2022-07-20] MEDS ORDERED: HEPARIN SODIUM, PORCINE 5000 UNITS/1 ML VIAL IV ONE (16:00)
[2022-07-20] MEDS: HEPARIN INFUSION/D5W 500 ML IV PRN (16:38)
[2022-07-20] MEDS: WARFARIN SODIUM 5 MG TABLET PO SCH (16:52)
--- NOTE | 2022-07-20 18:18 | NUR ---
WET PROCESS ASSISTANT HEAD MILLER NOTES PT IN BED, AWAKE, ALERT AND ORIENTED, WATCHING TV, NO COMPLAINT OF PAIN OR ANY DISCOMFORT, CALL LIGHT WITHIN REACH, HEPARIN DRIP INFUSING ORDERED, NO S/S OF BLEEDING, PM MEDS GIVEN, ALL NEEDS ATTENDED.
--- NOTE | 2022-07-20 19:30 | NUR ---
CLINICAL TRIAL EDUCATOR OPENING NOTES RECEIVED PT LYING IN BED AWAKE. A/O X4. NO ACUTE DISTRESS NOTED. NO C/O PAIN AT THIS TIME. BREATHING EVEN AND NON-LABORED ON ROOM AIR. HAS LEFT FOREARM IV ACCESS #20G WITH HEPARIN DRIP INFUSING ORDERED. SAFETY MEASURES MAINTAINED: BED LOW AND LOCKED, SIDE RAILS UP X 2, CALL LIGHT WITHIN REACH. WILL CONTINUE PLAN OF CARE. Addendum: 07/20/22 at 1999 by April LASHELL MAKI ON TELE MONITOR READING SINUS RHYTHM AT 72 BPM.
[2022-07-20 20:00] VITALS: BP 125/76
--- NOTE | 2022-07-20 23:05 | NUR ---
ADMITTING OFFICER NOTES RECEIVED CALL FROM LAB, PTT RESULT 84.9. ADJUSTED HEPARIN DRIP TO 1300 UNITS/HR PER HEPARIN PROTOCOL.
[2022-07-21 00:01] VITALS: BP 116/66
[2022-07-21 06:00] VITALS: BP 108/67
[2022-07-21 06:31] LABS: CALCIUM, SERUM 8.6 mg/dL (8.5-10.1); CREATININE 0.8 mg/dL (0.6-1.3); MAGNESIUM 2.1 mg/dL (1.8-2.4); PHOSPHORUS 3.6 mg/dL (2.5-4.9); POTASSIUM 4.1 mmol/L (3.5-5.1)
--- NOTE | 2022-07-21 06:59 | NUR ---
LITHOGRAPHER APPRENTICE CLOSING NOTES PT LYING IN BED ASLEEP, EASY TO AROUSE. A/O X4. NO SOB OR NOTED. TOLERATING ROOM AIR WELL. NO C/O PAIN OR DISCOMFORT. ON TELE MONITOR READING SINUS RHYTHM WITH BBB AT 62 BPM. HAS LEFT FOREARM IV ACCESS #20G WITH HEPARIN DRIP INFUSING AT 1300 UNITS/HR. INTACT, PATENT AND FLUSHING WELL. ALL NEEDS ATTENDED. SAFETY MEASURES IN PLACED: BED LOW AND LOCKED, SIDE RAILS UP X2, CALL LIGHT WITHIN REACH. WILL ENDORSE TO AM SHIFT FOR ANTHONY.
--- NOTE | 2022-07-21 07:10 | NUR ---
RN OPENING NOTE PT RESTING IN BED AWAKE. NO SIGNS OF RESPIRATORY DISTRESS OR SOB NOTED. SATURATING WELL ON RA AT 98%. A/OX4. CALM AND COOPERATIVE. TELE READING SR WITH BBB AT 62. LEFT FOREARM 20G IV INTACT AND INFUSING HEPARIN DRIP @ 1300 UNITS/HR. SAFETY CHECKS IN PLACE: BED LOCKED IN LOWEST POSITION, CALL LIGHT WITHIN REACH. WILL CONTINUE TO MONITOR.
[2022-07-21 07:21] LABS: BASOPHILS % (AUTO) 0.4 % (0.0-2.0); EOSINOPHILS % (AUTO) 2.5 % (0.0-6.0); HEMATOCRIT 36 % (39-51); HEMOGLOBIN 11.7 g/dL (13.5-17.5); LYMPHOCYTES # (AUTO) 1.1 K/uL (0.8-4.8); LYMPHOCYTES % (AUTO) 17.2 % (20.0-44.0); MEAN CORPUSCULAR HGB CONC 32 g/dl (31.0-36.0); MEAN CORPUSCULAR VOLUME 89 fL (80-96); MONOCYTES # (AUTO) 0.6 K/uL (0.1-1.30); MONOCYTES % (AUTO) 10.3 % (2.0-12.0); NEUTROPHILS # (AUTO) 4.4 K/uL (1.8-8.9); NEUTROPHILS % (AUTO) 69.6 % (43.0-81.0); PLATELET COUNT (AUTO) 273 K/uL (150-450); RED BLOOD CELL COUNT(AUTO) 4.07 MIL/uL (4.5-6.0); WHITE BLOOD COUNT (AUTO) 6.3 K/uL (4.3-11.0)
[2022-07-21] MEDS: ASPIRIN 81 MG TAB.CHEW PO SCH (09:10)
[2022-07-21] MEDS: HEPARIN INFUSION/D5W 500 ML IV PRN (13:09)
[2022-07-21] MEDS ORDERED: WARFARIN SODIUM 5 MG TABLET PO SCH (17:00)
--- NOTE | 2022-07-21 18:30 | NUR ---
RN CLOSING NOTE PT IN BED AWAKE. A/OX4. NO SIGNS OF RESPIRATORY DISTRESS OR SOB NOTED. STABLE ON RA. TELE MONITOR ON AND READING SR 95. NO C/O OF PAIN OR DISCOMFORT AT THIS TIME. ALL SCHEDULED MEDS GIVEN. ALL NEEDS MET. IV IN LEFT FOREARM 20G INFUSING HEPARIN 1300UNITS/HR. INTACT AND PATENT. SAFETY MEASURES IN PLACE: BED LOCKED IN LOWEST POSITION, CALL LIGHT WITHIN REACH, SIDE RIALS UP X2. WILL ENDORSE TO CARPENTER AND JOINER NURSE FOR ANTHONY.
--- NOTE | 2022-07-21 19:30 | NUR ---
RN OPENING NOTES RECEIVED PT TALKING ON PHONE, AWAKE. AOx4, ABLE TO MAKE NEEDS KNOWN. NO DISTRESS NOTED. HEPARIN @ 1300 UNITS PER HOUR. ALL NEEDS MET AT THIS TIME.
[2022-07-21 20:00] VITALS: BP 115/76
[2022-07-22] VITALS: BP 110/61
--- NOTE | 2022-07-22 06:42 | NUR ---
RN CLOSING NOTES PT LAYING IN BED, ASLEEP, AWAKENS TO VERBAL STIMULI. AOx4, ABLE TO MAKE NEEDS KNOWN. NO DISTRESS NOTED. HEPARIN @ 1300 UNITS PER HOUR. ALL ORDERS CARRIED OUT. ALL NEEDS MET. PT KEPT CLEAN AND DRY. WILL ENDORSE TO ONCOMING SHIFT FOR ANTHONY.
--- NOTE | 2022-07-22 07:10 | NUR ---
RN OPENING NOTE RECEIVED PT IN BED AWAKE. NO SIGNS OF RESPIRATORY DISTRESS OR SOB NOTED. TELE MONITOR READING SR, WITH BBB 62. IV IN LEFT FA 20G INFUSING HEPARIN AT 1300U/HR INTACT AND PATENT. NO COMPLAINTS OF PAIN AT THIS TIME. SAFETY CHECKS: BED LOCKED IN LOWEST POSITION, CALL LIGHT WITHIN REACH, SIDE RAILS X2. WILL CONTINUE TO MONITOR.
--- NOTE | 2022-07-22 08:00 | NUR ---
RN NOTE PER DR. VASQUEZ D/Jovanny HEPARIN DRIP.
[2022-07-22 08:22] VITALS: BP 104/68
[2022-07-22] MEDS: ASPIRIN 81 MG TAB.CHEW PO SCH (08:58)
[2022-07-22] MEDS ORDERED: WARF-58 PO (11:32)
--- NOTE | 2022-07-22 15:29 | NUR ---
RN NOTE PT DISCHARGED HOME PICKED UP BY FAMILY. CONDITION AT TIME OF DISCHARGE WAS STABLE. DISCHARGE INSTRUCTIONS AND EDUCATION GIVEN AND SIGNED. PT STATED HE UNDERSTOOD ALL DISCHARGE EDUCATION. IV AND TELE BOX REMOVED. PT STABLE.
== END 2022-07-22 15:30 | disposition home or self-care (01) | DRG 197 ==
LOC: ER 12:57 → ICU 07-13 14:05 → TELE 07-15 15:14
PROVIDERS: ATTEND Nurse Practitioner Acute Care
PROC: 30233N1 Transfusion of Nonautologous Red Blood Cells into Peripheral Vein, Percutaneous Approach (ICD-10-PCS; principal; 2022-07-13)
DX: I77.72 Dissection of iliac artery (principal); K66.1 Hemoperitoneum; D62 Acute posthemorrhagic anemia; D68.59 Other primary thrombophilia; I48.91 Unspecified atrial fibrillation; Z20.822 Contact with and (suspected) exposure to COVID-19; T45.515A Adverse effect of anticoagulants, initial encounter; Y92.9 Unspecified place or not applicable; M85.80 Other specified disorders of bone density and structure, unspecified site; I25.10 Atherosclerotic heart disease of native coronary artery without angina pectoris; I77.810 Thoracic aortic ectasia; K40.20 Bilateral inguinal hernia, without obstruction or gangrene, not specified as recurrent; K44.9 Diaphragmatic hernia without obstruction or gangrene; K57.30 Diverticulosis of large intestine without perforation or abscess without bleeding; N20.0 Calculus of kidney; Z79.01 Long term (current) use of anticoagulants; Z95.2 Presence of prosthetic heart valve; M79.81 Nontraumatic hematoma of soft tissue
CPT/HCPCS: 36415; 71045-TC; 80048-TC; 80053-TC; 80076-TC; 81001; 83690-TC; 83735-TC; 84100-TC; 85025-TC; 85610-TC; 85730-TC; 86850-TC; 87081-TC; 93307-TC; C9132; C9803; G0378; J1644; J1650; J2270; J2405; J3430; J7030; J7040; J7050; J7060; P9017; Q9967